=== PATIENT | female | born 1985 | race Hispanic/Latino ===

== ENCOUNTER 2024-08-17 21:23 | Emergency (ER) | payer SELFPAY ==
[~2024-08-17] VITALS: Ht 152.4 cm; Wt 61.2 kg
[2024-08-17 21:27] VITALS: PULSE 88; RESP 16; TEMP 99.3; O2SAT 100
[2024-08-17] MEDS ORDERED: AMOX TR-K CLV1 EAC2 PO (22:33)
[2024-08-17 22:45] LABS: INFLUENZA A AG NEGATIVE (NEGATIVE)
[2024-08-17 22:46] LABS: CORONAVIRUS COVID-19 AG NEGATIVE (NEGATIVE); INFLUENZA B AG POSITIVE (NEGATIVE)
== END 2024-08-17 22:55 | disposition home or self-care (01) ==
LOC: ER 21:35
DX: R50.9 Fever, unspecified (principal); J10.1 Influenza due to other identified influenza virus with other respiratory manifestations; J02.0 Streptococcal pharyngitis; R05.9 Cough, unspecified; R10.13 Epigastric pain; Z11.52 Encounter for screening for COVID-19
CPT/HCPCS: 83518; 99283